=== PATIENT | male | born 1960 | race Caucasian/White ===

== ENCOUNTER → 2016-08-30 | Day surgery (SDC) | payer BC ==
[~2016-08-30] MED LIST: LEXAPRO PO; METOPROLOL PO
--- NOTE | ~2016-08-30 | OR ---
Unit #: [id number] #: [id number] Patient: JAMES ELKINS [id number] [address] [place], [place] [address] [id number] O MR#: [id number] NAME: JAMES ELKINS ROOM: Date of Procedure: 08/30/2016 Admission Date: 08/30/2016 Surgeon: Kirby Manzo M.D. : 1960 Attending Physician: Kirby Manzo M.D. Primary Care Physician: Tristin Odell M.D. OPERATIVE REPORT PREOPERATIVE DIAGNOSIS Screening colonoscopy. POSTOPERATIVE DIAGNOSIS Screening colonoscopy. PROCEDURES PERFORMED 1. Colonoscopy to cecum. 2. Polypectomy with electrocautery snare of the cecum with hemoclip of cecal polypectomy site. 3. Polypectomy with electrocautery snare at 80 cm. 4. Polypectomy with electrocautery snare at 20 cm with submucosal tattoo of site. ANESTHESIA Monitored anesthesia care. FINDINGS The patient was found to have a 5 mm polyp in the cecum, which was excised and had hemoclip placement. There was good hemostasis with electrocautery, but the hemoclips were placed to ensure good hemostasis. A polyp was excised at 80 cm and sent to pathology. Another one that was slightly larger was excised at 20 cm and was submucosally tattooed. There was good hemostasis at all sites. SPECIMENS Sent to pathology. COMPLICATIONS None apparent. CONDITION The patient tolerated the procedure well. INDICATIONS FOR PROCEDURE The patient is a 56-year-old white male, who presents at this time for screening colonoscopy. DESCRIPTION OF PROCEDURE After obtaining informed consent, the patient was brought to the endoscopy suite and after adequate monitored anesthesia care, had digital examination performed. The patient had good sphincter tone. No mass is Unit #: [id number] #: [id number] Patient: JAMES ELKINS palpable. At this point in time, the colonoscope was placed through the anus and slowly advanced to the level of the cecum without difficulty with lumen always in view. In the apex of the cecum, there was a 5 to 7 mm flat sessile polyp. It was completely excised with electrocautery snare and was retrieved with a mucus trap, and sent to pathology. There was good hemostasis with the electrocautery snare. However, 2 hemoclips were placed to ensure good hemostasis. On pulling back above the area of the cecum, the ileocecal valve was normal. The ascending colon was normal as was the hepatic flexure. The proximal transverse colon was normal. At 80 cm, a small polyp was found. It was excised completely with electrocautery snare, retrieved with a mucus trap, and sent to pathology. There was good hemostasis. The remaining portion of the transverse colon, splenic flexure, and descending colon were normal. The proximal sigmoid colon was normal. However, at 20 cm, there was an 8 to 10 mm polyp. It was excised completely with electrocautery snare, retrieved with a mucus trap, and sent to pathology. Because it was slightly larger and had a more friable appearance, the area was submucosally tattooed. The remaining portion of the sigmoid colon, rectosigmoid and rectum were all within normal limits. On retroflexing in the rectum to the anorectal junction, no significant abnormalities were found. The patient went from the endoscopy suite to recovery area in stable condition. RECOMMENDATIONS High-fiber diet, lots of liquids, tucks or wipes p.r.n. Call Saturday for pathology. Repeat colonoscopy in 3 years. Dictated by... Sal Vizcaino/salbador TD: 08/31/2016 05:24 JOB #: [id number] CC: [facility] OPERATIVE REPORT Page 1 of 1 X Kirby Manzo MD X PROCEDURE OPERATIVE NOTE
--- NOTE | ~2016-08-30 | OR ---
Unit #: [id number] #: [id number] Patient: JAMES ELKINS [id number] [facility]. [place], [place] [address] [id number] O MR#: [id number] NAME: JAMES ELKINS ROOM: Date of Procedure: 08/30/2016 Admission Date: 08/30/2016 Surgeon: Kirby Manzo M.D. : 1960 Attending Physician: Kirby Manzo M.D. Primary Care Physician: Tristin Odell M.D. OPERATIVE REPORT ADDENDUM The patient tolerated the procedure well, went from the endoscopy suite to recovery room in stable condition. RECOMMENDATIONS Call Saturday for pathology. High-fiber diet, lots of liquids, tucks or wipes p.r.n. Repeat colonoscopy in 3 years' time. Dictated by... Kirby Manzo M.D. JPG/modl TD: 08/31/2016 08:40 JOB #: [id number] CC: [facility] OPERATIVE REPORT Page 1 of 1 X Kirby Manzo MD X PROCEDURE OPERATIVE NOTE
== END | disposition home or self-care (01) ==
LOC: COPS 10:28
DX: Z12.11 Encounter for screening for malignant neoplasm of colon (principal); K63.5 Polyp of colon; D12.6 Benign neoplasm of colon, unspecified; E66.01 Morbid (severe) obesity due to excess calories; G47.30 Sleep apnea, unspecified; I48.91 Unspecified atrial fibrillation; F41.9 Anxiety disorder, unspecified; Z68.27 Body mass index [BMI] 27.0-27.9, adult; Z79.899 Other long term (current) drug therapy
CPT/HCPCS: 88305; J2250